=== PATIENT | female | born 1950 | race Caucasian/White ===

== ENCOUNTER 2016-11-20 08:47 | Day surgery (SDC) | payer MEDICARE ==
[~2016-11-20 08:47] MED LIST: FENTANYL 250 MCG/5 ML AMP IV PRN; LACTATED RINGERS 1,000 ML IV SCH; MIDAZOLAM HCL 5 MG/5 ML VIAL IV PRN
[2016-11-20] MEDS ORDERED: LACTATED RINGERS 1,000 ML ONE (09:08)
[2016-11-20] MEDS ORDERED: IV START KIT ONE (09:08)
[2016-11-20] MEDS ORDERED: MIDAZOLAM HCL 5 MG/5 ML VIAL ONE (10:25)
[2016-11-20] MEDS ORDERED: FENTANYL 250 MCG/5 ML AMP ONE (10:25)
== END 2016-11-20 12:02 | disposition home or self-care (01) ==
LOC: SDC 08:47
PROVIDERS: ATTEND Internal Medicine Gastroenterology
PROC: 0DJD8ZZ Inspection of Lower Intestinal Tract, Via Natural or Artificial Opening Endoscopic (ICD-10-PCS; principal; 2016-11-20)
DX: Z12.11 Encounter for screening for malignant neoplasm of colon (principal); K57.30 Diverticulosis of large intestine without perforation or abscess without bleeding; Z80.0 Family history of malignant neoplasm of digestive organs; Z87.891 Personal history of nicotine dependence; Z85.3 Personal history of malignant neoplasm of breast; F32.9 Major depressive disorder, single episode, unspecified; I10 Essential (primary) hypertension; Z88.2 Allergy status to sulfonamides
CPT/HCPCS: 45378; J3010; J2250; J7120